=== PATIENT | female | born 1950 | race Caucasian/White ===

== ENCOUNTER 2017-10-09 10:15 | Outpatient (CLI) | payer MEDICARE ==
--- NOTE | 2017-10-09 10:52 | RAD ---
CERVICAL SPINE THREE VIEWS: History: Cervical radiculopathy, difficulty swallowing, post-surgery. Comparison: None. FINDINGS: Anterior plate and screws are in place transfixing C3, C4, C5, and C6 levels. Interbody implants are in place at the C3-4, C4-5, and C5-6 disc spaces. The implants appear adequately positioned. The metal plate does not adhere to the anterior cortex of C3, C4, or C5. Distance between the metal p late and anterior cortex of C3 measures approximately 5 mm. The right screw at the C4 vertebra appears to have retracted slightly. Posterior alignment is preserved. IMPRESSION: Anterior fusion procedure with anterior plate and screws as described above. Possible retraction of a n anterior screw on the right at the C4 level. POS: JUAN CARLOS
== END 2017-10-09 10:16 | disposition home or self-care (01) ==
LOC: TBSIIMAG 10:15
PROVIDERS: ATTEND Physician Assistant
DX: M54.12 Radiculopathy, cervical region (principal); Z98.1 Arthrodesis status
CPT/HCPCS: 72040

== ENCOUNTER 2017-11-25 13:22 | Outpatient (CLI) | payer MEDICARE ==
--- NOTE | 2017-11-25 13:53 | RAD ---
FOUR VIEWS OF THE CERVICAL SPINE: Comparison: 10-09-17 History: Status post fusion of the cervical spine in September 2017. Follow up exam. FINDINGS: AP, lateral, swimmer's and open mouth odontoid views of the cervical spine shows patient to be status post anterior fusion of C3 through C6 with an anterior plate and screws. There is persistent lucency surrounding the screws at C3. The disc spacers are in good position within the disc spaces. The plat e is not completely opposed to anterior aspect of the vertebral body of C3 and is possibly misdisplac ed 4-5 mm. These findings are stable compared to the prior exam. No prevertebral soft tissue swelling is seen. There may be slight backing out of one of the screws at C4. IMPRESSION: 1. Stable post-surgical changes of the cervical spine as above. POS: JUAN CARLOS
== END 2017-11-25 13:23 | disposition home or self-care (01) ==
LOC: TBSIIMAG 13:22
PROVIDERS: ATTEND Neurological Surgery
DX: M50.30 Other cervical disc degeneration, unspecified cervical region (principal); Z98.1 Arthrodesis status
CPT/HCPCS: 72040

== ENCOUNTER 2022-04-12 11:39 | Outpatient (CLI) | payer MEDICARE | END 2022-04-12 11:40 | disposition home or self-care (01) | LOC: LABBT 11:39 | PROVIDERS: ATTEND Urology | DX: Z01.818 Encounter for other preprocedural examination (principal) | CPT/HCPCS: 71046 ==

== ENCOUNTER 2022-04-12 12:00 | Inpatient (IN) | payer OTHER ==
[2022-04-12 12:50] LABS: Bilirubin Neg (Negative); Blood, Urine Negative (Negative); Clarity Clear (Clear); Glucose, Urine (Dipstick) Normal (Negative); Ketone, Urine Negative (Negative); Leukocyte 100 (Negative); Nitrite Negative (Negative); Protein, Urine (Dipstick) 30 mg/dl (Neg-Trace); Urobilinogen Normal mg/dL (Less than 2)
[2022-04-12 12:57] LABS: Bacteria/HPF 1+ HPF (None Seen); Hemoglobin 13.7 g/dL (12.0-15.5); Mean Corpuscular HGB CONC 31.9 g/dL (32.0-36.0); Mean Corpuscular Hemoglobin 29.6 pg (27.0-33.0); Mean Corpuscular Volume 92.7 fl (81.6-98.3); Platelet Count 252 10x3/uL (150-450); RBC Distribution Width 13.8 % (11.5-14.5); RBC/HPF 0-3 HPF (0-3); Red Blood Cell (RBC) Count 4.63 10x6/uL (3.90-5.03); White Blood Cell (WBC) Count 8.6 10x3/uL (3.5-10.5)
[2022-04-12 12:58] LABS: Mucous/LPF 1+ LPF (<2+)
[2022-04-12 13:12] LABS: Anion Gap 15 mmol/L (10-20); BUN (Urea Nitrogen) 9 mg/dL (9.8-20.1); Calc. Creatinine Clearance 0 mL/min (70-130); Calcium 9.4 mg/dL (7.8-10.44); Carbon Dioxide 27 mmol/L (23-31); Chloride 105 mmol/L (98-107); Estimated GFR 87; Glucose 115 mg/dL (80-115); Potassium 4.3 mmol/L (3.5-5.1); Sodium 143 mmol/L (136-145)
[2022-04-12 13:15] LABS: PTT 26.6 sec (22.0-33.0); Prothrombin Time 10.4 sec (9.5-12.1)
[2022-04-15 13:36] VITALS: BMI 41.1
[2022-04-17] MEDS ORDERED: Lidocaine 1% MPF 2 ML VIAL ONE ×2 (10:06→15:17)
[2022-04-17] MEDS ORDERED: Fentanyl 100 MCG/2 ML VIAL ONE (11:17)
[2022-04-17] MEDS ORDERED: Midazolam HCl 2 mg/2 ml Vial ONE (11:17)
[2022-04-17] MEDS ORDERED: Scopolamine 1.5 mg/72 hour Patch ONE (11:31)
[2022-04-17] MEDS ORDERED: Ondansetron PF 4 MG/2 ML Vial ONE ×2 (11:31→15:17)
[2022-04-17] MEDS ORDERED: Acetaminophen 325 MG TAB PO PRN (12:18)
[2022-04-17] MEDS ORDERED: diphenhydrAMINE 50 MG/ML VIAL IVP PRN (12:30)
[2022-04-17] MEDS ORDERED: Ondansetron PF 4 MG/2 ML Vial IVP PRN (12:30)
[2022-04-17] MEDS ORDERED: Naloxone HCl 0.4 mg/ml Vial IV PRN (12:30)
[2022-04-17] MEDS ORDERED: traMADol HCl 50 MG TAB PO PRN ×2 (12:30)
[2022-04-17] MEDS ORDERED: diphenhydrAMINE 50 MG/ML VIAL IM PRN (12:30)
[2022-04-17] MEDS ORDERED: Promethazine HCl 25 MG SUPP PR PRN (12:30)
[2022-04-17] MEDS ORDERED: Zolpidem Tartrate 5 MG TAB PO PRN (12:30)
[2022-04-17] MEDS ORDERED: Promethazine HCl 25 MG/ML VIAL IM PRN ×2 (12:30→18:47)
[2022-04-17] MEDS ORDERED: Naloxone HCl 0.4 mg/ml Vial IVP PRN (12:30)
[2022-04-17] MEDS ORDERED: Moisturizing Cream (Eucerin) 113 GM JAR TOP PRN (12:30)
[2022-04-17] MEDS ORDERED: diphenhydrAMINE 25 MG CAP PO PRN (12:30)
[2022-04-17] MEDS ORDERED: Bupivacaine 0.25% 10 ML VIAL ONE (12:47)
[2022-04-17] MEDS ORDERED: fentaNYL Citrate/PF 100 MCG/2 ML SYRINGE ONE ×2 (14:28→19:29)
[2022-04-17] MEDS ORDERED: CEFAZOLIN 2 GM VIAL ONE (14:50)
[2022-04-17] MEDS ORDERED: Sodium Chloride 0.9% 100 ML ONE (14:50)
[2022-04-17] MEDS ORDERED: Lidocaine 1.5% w/Epi 1:200K 30 ML VIAL (Epid Use) ONE (15:17)
[2022-04-17] MEDS ORDERED: Succinylcholine 200 MG/10 ml SYRINGE FS ONE (15:17)
[2022-04-17] MEDS ORDERED: Glycopyrrolate 0.2 MG/ML 5 ML SYRINGE ONE (15:17)
[2022-04-17] MEDS ORDERED: Calcium Chloride 1 GM/10 ML Abboject SYRINGE ONE (15:17)
[2022-04-17] MEDS ORDERED: Dexamethasone 20 MG/5 ML VIAL ONE (15:17)
[2022-04-17] MEDS ORDERED: PROPOFOL 200 MG/20 ML VIAL ONE (15:17)
[2022-04-17] MEDS ORDERED: Phenylephrine 10 MG/ML VIAL ONE (15:17)
[2022-04-17] MEDS ORDERED: NEOSTIGMINE 3 MG/3 ML SYR 3 MG/3 ML SYRINGE ONE (15:17)
[2022-04-17] MEDS ORDERED: ePHEDrine 50 MG/ML VIAL ONE (15:17)
[2022-04-17] MEDS ORDERED: Rocuronium Bromide 10 MG/ML (10ML VIAL) ONE (15:17)
[2022-04-17] MEDS ORDERED: Mag-Al 1200 mg/1200 mg/30 ML UDCUP PO PRN (18:33)
[2022-04-17] MEDS ORDERED: Dextrose 50% Abboject 50 ML SYRINGE SLOW IVP PRN (18:33)
[2022-04-17] MEDS ORDERED: hydrALAZINE 20 MG/ML VIAL SLOW IVP PRN (18:33)
[2022-04-17] MEDS ORDERED: Oxybutynin 5 MG TAB PO PRN (18:33)
[2022-04-17] MEDS ORDERED: Dextrose 5% in Water 1,000 ML IV PRN (18:33)
[2022-04-17] MEDS ORDERED: HumaLOG 300 UNITS/3 ML VIAL SC PRN (18:33)
[2022-04-17] MEDS ORDERED: HYDROmorphone 2 MG/ML VIAL SLOW IVP PRN (18:47)
[2022-04-17] MEDS ORDERED: Promethazine HCl 25 MG/ML VIAL IVPB PRN (18:47)
[2022-04-17] MEDS ORDERED: Ondansetron HCl/PF 4 MG/2 ML Vial IVP PRN (18:47)
[2022-04-17] MEDS ORDERED: Promethazine HCl 25 MG/ML VIAL ONE (19:10)
[2022-04-17 19:35] LABS: Mean Corpuscular HGB CONC 34.1 g/dL (32.0-36.0); Mean Corpuscular Hemoglobin 31.1 pg (27.0-31.0); Mean Corpuscular Volume 91.3 fL (78.0-98.0); Platelet Count 158 thou/uL (130-400); RBC Distribution Width 13.2 % (11.5-14.5); Red Blood Cell (RBC) Count 4.19 mill/uL (4.20-5.40); White Blood Cell (WBC) Count 18.7 thou/uL (4.8-10.8)
[2022-04-17 19:54] LABS: Anion Gap 16 mmol/L (10-20); BUN (Urea Nitrogen) 10 mg/dL (9.8-20.1); Calc. Creatinine Clearance 99 mL/min (70-130); Carbon Dioxide 19 mmol/L (23-31); Chloride 109 mmol/L (98-107); Estimated GFR 74; Glucose 161 mg/dL (80-115); Potassium 4.4 mmol/L (3.5-5.1); Sodium 140 mmol/L (136-145)
[2022-04-17] MEDS: Sodium Chloride 0.9% 1,000 ML IV SCH (20:00)
[2022-04-17] MEDS: CEFAZOLIN 1 GM in Sodium Chloride 0.9% 100 ML IVPB SCH (22:18)
[2022-04-17] MEDS: Gabapentin 300 MG CAP PO SCH (22:18)
[2022-04-17] MEDS: Metoprolol Tartrate 25 MG TAB PO SCH (22:18)
[2022-04-18] MEDS: HYDROcodone/Acetaminophen 5/325 mg Tablet PO PRN ×5 (00:04→20:39)
[2022-04-18 05:59] LABS: #Lymphocytes 1.2 thou/uL (1.20-3.40); #Monocytes 1.2 thou/uL (0.11-0.59); #Neutrophils 13.1 thou/uL (1.40-6.50); %Basophils 0.1 % (0.0-1.0); %Eosinophils 0.1 % (0.0-10.0); %Lymphocytes 7.5 % (21.0-51.0); %Monocytes 7.9 % (0.0-10.0); %Neutrophils 84.4 % (42.0-75.0); Hemoglobin 11.8 g/dL (12.0-16.0); Mean Corpuscular HGB CONC 31.9 g/dL (32.0-36.0); Mean Corpuscular Hemoglobin 29.6 pg (27.0-31.0); Mean Corpuscular Volume 92.6 fL (78.0-98.0); Mean Platelet Volume 8.8 fL (7.4-10.4); Platelet Count 228 thou/uL (130-400); RBC Distribution Width 13.4 % (11.5-14.5); Red Blood Cell (RBC) Count 3.98 mill/uL (4.20-5.40); White Blood Cell (WBC) Count 15.5 thou/uL (4.8-10.8)
[2022-04-18 06:22] LABS: Anion Gap 16 mmol/L (10-20); BUN (Urea Nitrogen) 11 mg/dL (9.8-20.1); Calc. Creatinine Clearance 87 mL/min (70-130); Calcium 8.2 mg/dL (7.8-10.44); Carbon Dioxide 19 mmol/L (23-31); Chloride 107 mmol/L (98-107); Estimated GFR 63; Glucose 159 mg/dL (80-115); Potassium 4.3 mmol/L (3.5-5.1); Sodium 138 mmol/L (136-145)
[2022-04-18] MEDS: Sodium Chloride 0.9% 1,000 ML IV SCH ×3 (06:35→18:41)
[2022-04-18] MEDS: CEFAZOLIN 1 GM in Sodium Chloride 0.9% 100 ML IVPB SCH ×2 (06:36→15:02)
[2022-04-18] MEDS: Metoprolol Tartrate 25 MG TAB PO SCH ×2 (09:59→20:39)
[2022-04-18] MEDS: Gabapentin 300 MG CAP PO SCH ×3 (10:03→20:38)
[2022-04-18] MEDS: fentaNYL Citrate/PF 500 MCG, Bupivacaine 0.75% 10 ML in Sodium Chloride 0.9% 80 ML EPIDURAL SCH (11:22)
[2022-04-19] MEDS: HYDROcodone/Acetaminophen 5/325 mg Tablet PO PRN (02:42)
[2022-04-19] MEDS: fentaNYL Citrate/PF 500 MCG, Bupivacaine 0.75% 10 ML in Sodium Chloride 0.9% 80 ML EPIDURAL SCH ×2 (03:06→19:28)
[2022-04-19 06:09] LABS: #Eosinphils 0.1 thou/uL (0.0-0.7); #Lymphocytes 2.2 thou/uL (1.20-3.40); #Monocytes 1.1 thou/uL (0.11-0.59); #Neutrophils 11.3 thou/uL (1.40-6.50); %Basophils 0.3 % (0.0-1.0); %Eosinophils 0.3 % (0.0-10.0); %Lymphocytes 15.1 % (21.0-51.0); %Monocytes 7.3 % (0.0-10.0); %Neutrophils 77.1 % (42.0-75.0); Hemoglobin 10.2 g/dL (12.0-16.0); Mean Corpuscular HGB CONC 32.4 g/dL (32.0-36.0); Mean Corpuscular Hemoglobin 30.1 pg (27.0-31.0); Mean Corpuscular Volume 92.8 fL (78.0-98.0); Mean Platelet Volume 8.7 fL (7.4-10.4); Platelet Count 199 thou/uL (130-400); RBC Distribution Width 13.3 % (11.5-14.5); White Blood Cell (WBC) Count 14.6 thou/uL (4.8-10.8)
[2022-04-19 06:23] LABS: Anion Gap 13 mmol/L (10-20); BUN (Urea Nitrogen) 8 mg/dL (9.8-20.1); Calc. Creatinine Clearance 114 mL/min (70-130); Carbon Dioxide 24 mmol/L (23-31); Chloride 104 mmol/L (98-107); Estimated GFR 75; Glucose 146 mg/dL (80-115); Potassium 3.9 mmol/L (3.5-5.1); Sodium 137 mmol/L (136-145)
[2022-04-19] MEDS: Metoprolol Tartrate 25 MG TAB PO SCH ×2 (08:08→20:21)
[2022-04-19] MEDS: Gabapentin 300 MG CAP PO SCH ×3 (08:08→20:21)
[2022-04-20] MEDS: Gabapentin 300 MG CAP PO SCH ×3 (08:04→21:22)
[2022-04-20] MEDS: Metoprolol Tartrate 25 MG TAB PO SCH ×2 (08:05→21:23)
[2022-04-20] MEDS: fentaNYL Citrate/PF 500 MCG, Bupivacaine 0.75% 10 ML in Sodium Chloride 0.9% 80 ML EPIDURAL SCH (11:32)
[2022-04-21] MEDS: fentaNYL Citrate/PF 500 MCG, Bupivacaine 0.75% 10 ML in Sodium Chloride 0.9% 80 ML EPIDURAL SCH (04:18)
[2022-04-21] MEDS: Gabapentin 300 MG CAP PO SCH ×3 (09:34→20:20)
[2022-04-21] MEDS: Metoprolol Tartrate 25 MG TAB PO SCH ×2 (09:34→20:20)
[2022-04-21] MEDS: HYDROcodone/Acetaminophen 5/325 mg Tablet PO PRN ×2 (14:59→21:30)
[2022-04-22] MEDS: HYDROcodone/Acetaminophen 5/325 mg Tablet PO PRN ×3 (01:14→12:39)
[2022-04-22] MEDS: Metoprolol Tartrate 25 MG TAB PO SCH (08:34)
[2022-04-22] MEDS: Gabapentin 300 MG CAP PO SCH (08:34)
[2022-04-22 12:47] VITALS: BP 128/64; TEMP 97.9
== END 2022-04-22 15:39 | disposition home or self-care (01) | DRG 657 ==
LOC: SURG A 04-17 09:33
PROVIDERS: ADMIT Urology; ATTEND Urology
PROC: 0TB00ZZ Excision of Right Kidney, Open Approach (ICD-10-PCS; principal; 2022-04-17)
PROC: 30233N1 Transfusion of Nonautologous Red Blood Cells into Peripheral Vein, Percutaneous Approach (ICD-10-PCS; 2022-04-17)
DX: C64.1 Malignant neoplasm of right kidney, except renal pelvis (principal); K50.90 Crohn's disease, unspecified, without complications; Z68.42 Body mass index [BMI] 45.0-49.9, adult; I25.10 Atherosclerotic heart disease of native coronary artery without angina pectoris; R73.03 Prediabetes; I10 Essential (primary) hypertension; E78.2 Mixed hyperlipidemia; E78.00 Pure hypercholesterolemia, unspecified; Z96.652 Presence of left artificial knee joint; E66.01 Morbid (severe) obesity due to excess calories; I44.7 Left bundle-branch block, unspecified; D64.9 Anemia, unspecified; Z88.5 Allergy status to narcotic agent; Z88.8 Allergy status to other drugs, medicaments and biological substances; I25.2 Old myocardial infarction; Z91.040 Latex allergy status
CPT/HCPCS: 36415; 36416; 36430; 80048; 81001; 85025; 85027; 85610; 85730; 86850; 86900; 86901; 87086; 87811; 88307; C1713; C1776; J0690; J1100; J2001; J2250; J2370; J2405; J2550; J2704; J3010; J3490; J7050; P9016; S0020

== ENCOUNTER 2022-04-23 16:28 | Observation (INO) | payer MEDICARE, OTHER ==
[~2022-04-23 16:28] MED LIST: Iopamidol-370 76% 500 ML 1 ML ONE
[2022-04-23 17:00] LABS: Hemoglobin 11.5 g/dL (12.0-16.0); Mean Corpuscular HGB CONC 33.9 g/dL (32.0-36.0); Mean Corpuscular Volume 91.3 fL (78.0-98.0); Mean Platelet Volume 7.6 fL (7.4-10.4); Platelet Count 371 thou/uL (130-400); RBC Distribution Width 13.3 % (11.5-14.5); Red Blood Cell (RBC) Count 3.71 mill/uL (4.20-5.40); White Blood Cell (WBC) Count 10.6 thou/uL (4.8-10.8)
[2022-04-23 17:08] LABS: INR-International Normal Ratio 1.1; PTT 34.3 sec (22.9-36.1); Prothrombin Time 14.8 sec (12.0-14.7)
[2022-04-23 17:22] LABS: Band 17 % (5-11); Lymphocytes 4 % (21-51); MDiff Complete? YES; Monocytes 8 % (0-10); Neutrophil 71 % (42-75); Platelet Morphology Comment Appears Adequate; Polychromasia SLIGHT = 2-3 cells (100X) (0-2/hpf); Vacuoles SLIGHT
[2022-04-23 17:24] LABS: ALT (SGPT) 27 U/L (8-55); AST (SGOT) 40 U/L (5-34); Albumin 3.5 g/dL (3.4-4.8); Alkaline Phosphatase 90 U/L (40-110); Anion Gap 20 mmol/L (10-20); BUN (Urea Nitrogen) 9 mg/dL (9.8-20.1); Bilirubin, Total 0.5 mg/dL (0.2-1.2); CK (CPK) 149 U/L (29-168); Calc. Creatinine Clearance 0 mL/min (70-130); Calcium 8.6 mg/dL (7.8-10.44); Carbon Dioxide 23 mmol/L (23-31); Chloride 92 mmol/L (98-107); Estimated GFR 82; Globulin 3.1 g/dL (2.4-3.5); Glucose 124 mg/dL (80-115); Lipase 37 U/L (8-78); Potassium 3.2 mmol/L (3.5-5.1); Protein, Total 6.6 g/dL (5.8-8.1); Sodium 132 mmol/L (136-145)
[2022-04-23 18:24] LABS: SARS-CoV-2 NAA Rapid Test Not Detected (NotDetected)
[2022-04-23 18:51] LABS: Bacteria/HPF 2+ HPF (None Seen); Bilirubin Negative (Negative); Blood, Urine 1+ (Negative); Clarity Clear (Clear); Glucose, Urine (Dipstick) Normal (Negative); Ketone, Urine 60 mg/dL (Negative); Leukocyte Negative Leu/uL (Negative); Nitrite Negative (Negative); Protein, Urine (Dipstick) 20 mg/dL (Neg-Trace); Urobilinogen Normal mg/dL (Less than 2)
[2022-04-23 18:54] LABS: Specific Gravity, Urine 1.048 (1.002-1.036)
[2022-04-23] MEDS ORDERED: traMADol HCl 50 MG TAB ONE (19:01)
[2022-04-23] MEDS ORDERED: Ondansetron PF 4 MG/2 ML Vial ONE (19:01)
[2022-04-23] MEDS ORDERED: cefTRIAXone\\ROCEPHIN 1 GM VIAL ONE (19:20)
[2022-04-23] MEDS ORDERED: Acetaminophen 325 MG TAB PO PRN (20:04)
[2022-04-23] MEDS ORDERED: hydrALAZINE 20 MG/ML VIAL SLOW IVP PRN (20:06)
[2022-04-23] MEDS ORDERED: Potassium Chloride 20 MEQ TAB PO SCH (20:15)
[2022-04-23] MEDS ORDERED: Sodium Chloride 0.9% 1,000 ML IV SCH (20:15)
[2022-04-23 20:49] LABS: Magnesium 1.7 mg/dL (1.6-2.6)
[2022-04-23] MEDS ORDERED: Ketorolac Tromethamine 30 MG/ML VIAL IVP PRN (20:56)
[2022-04-23] MEDS ORDERED: Polyethylene Glycol 3350 17 GM Packet PO PRN (21:06)
[2022-04-23 23:08] VITALS: BMI 41.5
[2022-04-23] MEDS: Piperacillin/Tazobactam 3.375 GM in Sodium Chloride 0.9% 100 ML IVPB SCH (23:32)
[2022-04-24] MEDS: Ondansetron PF 4 MG/2 ML Vial IVP PRN ×3 (01:17→14:14)
[2022-04-24 04:55] LABS: #Neutrophils 8.5 thou/uL (1.40-6.50); %Eosinophils 0.4 % (0.0-10.0); %Monocytes 9.4 % (0.0-10.0); %Neutrophils 81.2 % (42.0-75.0); Hemoglobin 11.1 g/dL (12.0-16.0); Mean Corpuscular HGB CONC 32.3 g/dL (32.0-36.0); Mean Corpuscular Volume 92.7 fL (78.0-98.0); Mean Platelet Volume 7.6 fL (7.4-10.4); Platelet Count 349 thou/uL (130-400); RBC Distribution Width 13.2 % (11.5-14.5); Red Blood Cell (RBC) Count 3.69 mill/uL (4.20-5.40); White Blood Cell (WBC) Count 10.5 thou/uL (4.8-10.8)
[2022-04-24 05:21] LABS: Anion Gap 18 mmol/L (10-20); BUN (Urea Nitrogen) 8 mg/dL (9.8-20.1); Calc. Creatinine Clearance 111 mL/min (70-130); Calcium 8.1 mg/dL (7.8-10.44); Carbon Dioxide 25 mmol/L (23-31); Chloride 96 mmol/L (98-107); Estimated GFR 83; Glucose 125 mg/dL (80-115); Magnesium 1.7 mg/dL (1.6-2.6); Potassium 3.3 mmol/L (3.5-5.1); Sodium 136 mmol/L (136-145)
[2022-04-24 05:23] LABS: ALT (SGPT) 22 U/L (8-55); AST (SGOT) 30 U/L (5-34); Albumin 3.3 g/dL (3.4-4.8); Alkaline Phosphatase 75 U/L (40-110); Bilirubin, Direct 0.2 mg/dL (0.1-0.3); Bilirubin, Total 0.5 mg/dL (0.2-1.2); Protein, Total 6.3 g/dL (5.8-8.1)
[2022-04-24] MEDS ORDERED: METRONIDAZOLE TOP PRN (07:27)
[2022-04-24] MEDS ORDERED: [UNRECOGNIZED DRUG - OTHER] TOP PRN (07:27)
[2022-04-24] MEDS ORDERED: Electrolyte Replacement Protocol 1 EACH FS SCH (07:30)
[2022-04-24] MEDS ORDERED: traMADol HCl 50 MG TAB PO PRN (07:32)
[2022-04-24] MEDS ORDERED: metroNIDAZOLE 45 GM TUBE TOP PRN (07:53)
[2022-04-24] MEDS: Piperacillin/Tazobactam 3.375 GM in Sodium Chloride 0.9% 100 ML IVPB SCH ×3 (08:06→22:50)
[2022-04-24] MEDS ORDERED: Magnesium 2 GM/50 ML(in water) 2 GM in Premix Bag 1 BAG IVPB SCH (09:00)
[2022-04-24] MEDS ORDERED: Potassium Chloride 20 MEQ TAB PO SCH (09:00)
[2022-04-24] MEDS ORDERED: Non-Formulary Item 1 EACH (Gabapentin [Gabapentin] 600 MG Tablet) PO SCH (09:00)
[2022-04-24] MEDS: Aspirin 81 mg Enteric Coated Tablet PO SCH (09:11)
[2022-04-24] MEDS: Metoprolol Tartrate 25 MG TAB PO SCH ×2 (09:11→20:17)
[2022-04-24] MEDS: Docusate 100 MG CAP PO SCH ×2 (09:11→20:17)
[2022-04-24] MEDS: Gabapentin 300 MG CAP PO SCH ×3 (09:11→20:15)
[2022-04-24] MEDS: Lisinopril 5 MG TAB PO SCH (09:12)
[2022-04-24] MEDS: Enoxaparin Sodium 40 MG/0.4 ML SYRINGE SC SCH (09:12)
[2022-04-24] MEDS: Polyethylene Glycol 3350 17 GM Packet PO SCH (10:04)
[2022-04-24] MEDS: Vit A,C & E/Lutein/Minerals Tablet PO SCH ×2 (10:04→20:15)
[2022-04-24] MEDS ORDERED: Sodium Chloride 0.9% 1,000 ML IV SCH (17:00)
[2022-04-24] MEDS ORDERED: Promethazine HCl 12.5 MG in Sodium Chloride 0.9% 50 ML IVPB PRN (17:19)
[2022-04-24] MEDS: Sodium Chloride 0.9% 1,000 ML IV SCH ×2 (18:03→20:19)
[2022-04-25 05:10] LABS: #Eosinphils 0.2 thou/uL (0.0-0.7); #Lymphocytes 1.7 thou/uL (1.20-3.40); #Monocytes 0.8 thou/uL (0.11-0.59); #Neutrophils 8.3 thou/uL (1.40-6.50); %Eosinophils 1.4 % (0.0-10.0); %Lymphocytes 15.7 % (21.0-51.0); %Monocytes 7.1 % (0.0-10.0); %Neutrophils 75.7 % (42.0-75.0); Mean Corpuscular HGB CONC 32.6 g/dL (32.0-36.0); Mean Corpuscular Hemoglobin 30.2 pg (27.0-31.0); Mean Corpuscular Volume 92.5 fL (78.0-98.0); Mean Platelet Volume 8.4 fL (7.4-10.4); Platelet Count 341 thou/uL (130-400); RBC Distribution Width 13.2 % (11.5-14.5); Red Blood Cell (RBC) Count 3.32 mill/uL (4.20-5.40); White Blood Cell (WBC) Count 10.9 thou/uL (4.8-10.8)
[2022-04-25 05:33] LABS: Anion Gap 18 mmol/L (10-20); BUN (Urea Nitrogen) 8 mg/dL (9.8-20.1); Calc. Creatinine Clearance 114 mL/min (70-130); Calcium 7.7 mg/dL (7.8-10.44); Carbon Dioxide 22 mmol/L (23-31); Chloride 101 mmol/L (98-107); Estimated GFR 86; Glucose 106 mg/dL (80-115); Magnesium 2.2 mg/dL (1.6-2.6); Potassium 3.9 mmol/L (3.5-5.1); Sodium 137 mmol/L (136-145)
[2022-04-25] MEDS ORDERED: Nitrofurantoin Monohyd/M-Cryst 100 MG CAP PO SCH (09:00)
[2022-04-25] MEDS: Docusate 100 MG CAP PO SCH (10:13)
[2022-04-25] MEDS: Aspirin 81 mg Enteric Coated Tablet PO SCH (10:13)
[2022-04-25] MEDS: Enoxaparin Sodium 40 MG/0.4 ML SYRINGE SC SCH (10:13)
[2022-04-25] MEDS: Gabapentin 300 MG CAP PO SCH (10:13)
[2022-04-25] MEDS: Polyethylene Glycol 3350 17 GM Packet PO SCH (10:14)
[2022-04-25] MEDS: Lisinopril 5 MG TAB PO SCH (10:14)
[2022-04-25] MEDS: Vit A,C & E/Lutein/Minerals Tablet PO SCH (10:14)
[2022-04-25] MEDS: Metoprolol Tartrate 25 MG TAB PO SCH (10:14)
[2022-04-25 11:52] VITALS: TEMP 98.1
[2022-04-25 11:54] VITALS: BP 135/66
== END 2022-04-25 12:51 | disposition home health service (06) ==
LOC: ERS 16:28 → ERHOLD 19:52 → 2SW 22:50
PROVIDERS: ADMIT Family Medicine; ATTEND Family Medicine
DX: K56.7 Ileus, unspecified (principal); I44.7 Left bundle-branch block, unspecified; E87.6 Hypokalemia; E87.1 Hypo-osmolality and hyponatremia; I10 Essential (primary) hypertension; C64.1 Malignant neoplasm of right kidney, except renal pelvis; I25.10 Atherosclerotic heart disease of native coronary artery without angina pectoris; A41.81 Sepsis due to Enterococcus; N39.0 Urinary tract infection, site not specified; E78.5 Hyperlipidemia, unspecified; G89.29 Other chronic pain; M54.9 Dorsalgia, unspecified; K76.0 Fatty (change of) liver, not elsewhere classified; E66.9 Obesity, unspecified; Z68.41 Body mass index [BMI] 40.0-44.9, adult; Z79.82 Long term (current) use of aspirin; Z79.899 Other long term (current) drug therapy; Z88.5 Allergy status to narcotic agent; Z91.040 Latex allergy status; Z90.5 Acquired absence of kidney; Z20.822 Contact with and (suspected) exposure to COVID-19
CPT/HCPCS: 71045; 74177; 80048 ×2; 80053; 80076; 82550; 82962; 83605; 83690; 83735 ×3; 84484; 85025 ×3; 85610; 85730; 87040; 87077; 87086; 87186; 93005 ×2; 94760; 96365; 96366; 96368; 96372 ×2; 96375; 96376; 97116 ×2; G0378 ×4; U0002; 36415; 36416; 81003; 81015; 93010; J0696; J1650; J2405; J2543; J2550; J3475; J3490; J7050; Q9967

== ENCOUNTER 2024-01-30 07:38 | Outpatient (CLI) | payer OTHER | END 2024-01-30 07:39 | disposition home or self-care (01) | LOC: SCSMRI 07:38 | PROVIDERS: ATTEND Physical Medicine & Rehabilitation | DX: M47.22 Other spondylosis with radiculopathy, cervical region (principal); M48.02 Spinal stenosis, cervical region; Z98.1 Arthrodesis status | CPT/HCPCS: 72141 ==